=== PATIENT | female | born 1990 | race Caucasian/White ===

== ENCOUNTER 2019-04-21 18:14 | Emergency (ER) | payer OTHER ==
[~2019-04-21] VITALS: Ht 162.6 cm; Wt 72.6 kg
[~2019-04-21 18:14] MED LIST: SPRINTEC1 EACH; ULTRAM50 MG PO; XOPENEX HF1 UDINHALE IH; ZOFRAN 4 MG ORAL4 MG PO
[2019-04-21 20:04] LABS: HEMATOCRIT 42.3 % (37.0-47.0); HEMOGLOBIN 14.5 gm/dL (12.0-15.0); MCH 31.5 pg (26.0-34.0); MCHC 34.2 g/dL (28.0-37.0); MCV 92.2 fL (80.0-100.0); RBC 4.58 mil/uL (4.20-5.00); RDW 13.4 % (10.5-14.5)
[2019-04-21 20:15] LABS: CALCIUM 9.1 mg/dL (8.5-10.1); CREATININE 0.8 mg/dL (0.6-1.0); POTASSIUM 3.6 mmol/L (3.5-5.1)
[2019-04-21 20:21] LABS: ALBUMIN 4.1 g/dL (3.4-5.0); MAGNESIUM 2.2 mg/dL (1.8-2.4); TOTAL BILIRUBIN 0.3 mg/dL (<0.1-1.0); TOTAL PROTEIN 8.1 g/dL (6.4-8.2)
[2019-04-21] MEDS ORDERED: XOPENEX HFA15 GM INH (20:58)
[2019-04-21] MEDS ORDERED: ATIVAN0.5 MG PO (21:05)
[2019-04-21 21:30] VITALS: BP 129/76
--- NOTE | 2019-04-23 07:56 | EKG ---
[address] [address] ELECTROCARDIOGRAM REPORT Name: EMILEE PIERRE Room #: [facility]#: [id number] Admission: 04/21/19 Attend Phys: Discharge: 04/21/19 Date of : 89 Report #: [id number] THIS REPORT FOR: //name// [facility] ED Test Date: 2019-04-21 Test Time: 19:04:27 Pat Name: EMILEE PIERRE Department: Room: Gender: F Advertising Consultant: PEARL : 1990 Requested By: Carlos Abbott Order Number: [id number] MD: Pj Silva Measurements Intervals [place] Rate: 83 P: 65 [place]: 138 QRS: 60 QRSD: 90 T: 35 QT: 404 QTc: 475 Interpretive Statements Sinus rhythm Probable left atrial enlargement Borderline prolonged QT interval No previous ECG available for comparison Electronically Signed On 04-23-2019 7:56:16 CDT by Pj Silva [email or web address] <ELECTRONICALLY SIGNED> By: Pj Silva MD 04/23/19 [id number] 03 Pj Silva MD /BRITTANY
== END 2019-04-21 21:39 | disposition home or self-care (01) ==
LOC: ER 18:14
PROVIDERS: Physician Assistant
DX: R00.2 Palpitations (principal); R06.02 Shortness of breath; F41.9 Anxiety disorder, unspecified; G43.909 Migraine, unspecified, not intractable, without status migrainosus; J45.909 Unspecified asthma, uncomplicated; Z88.8 Allergy status to other drugs, medicaments and biological substances